=== PATIENT | female | born 1980 | race Caucasian/White ===

== ENCOUNTER 2017-01-21 13:33 | Emergency (ER) | payer SELFPAY ==
[~2017-01-21 13:33] MED LIST: AUGMENTIN 875-1 EAC2 PO; BACTRIM DS TABL1 TAB PO; CYCLOBENZAPRINE10 M1 PO; DIFLUCAN150 MG PO; ELAVIL100 MG PO; EPIPEN0.3 MG/0.3 IM; EQUATE MIGRAINE; FLOXIN10 ML OT; IBUPROFEN200 M3 PO; IBUPROFEN600 M1 PO; IRON325 M3 PO; MOTRIN600 MG PO; MOTRIN800 MG PO; MULTIVITAMIN1 TAB PO; MULTIVITAMINS1 EAC6 PO; NEOMYCIN-POLYMY10 M5 OT; NO HOME MEDICATION XX; NORCO 5-325 TA1 EACH PO; NORCO 5/325 TAB1 TAB PO; NUCYNTA50 MG PO; PAXIL20 MG PO; PAXIL40 MG PO; PREDNISONE20 MG PO; RELAFEN500 MG PO; SAPHRIS10 MG SL; TRILEPTAL150 MG PO; ULTRAM50 MG PO; VICODIN 5/500 T1 TAB PO; VITAMIN C PO; [UNRECOGNIZED DRUG - OTHER]
== END 2017-01-21 14:50 | disposition left against medical advice (07) ==
LOC: EDMED 13:33
DX: Z53.21 Procedure and treatment not carried out due to patient leaving prior to being seen by health care provider (principal)